=== PATIENT | female | born 1995 ===

== ENCOUNTER 2023-11-28 18:12 | Emergency (ER) | payer BC, SELFPAY ==
[2023-11-28 18:15] VITALS: BP 134/85
--- NOTE | 2023-11-28 19:56 | ED.GENMED ---
History of Present Illness
General
Chief Complaint: Problems
Source: patient and spouse
Time Seen by Provider: 11/28/23 19:50
Travel History
Have you had any contact with someone who has COVID-19?: No
Do you have any symptoms of coronavirus? Fever > 100 degrees, chills, cough, shortness of breath, sore throat, loss of taste or smell, muscle aches, or headache?: No
History of Present Illness
History of Present Illness:
This patient is a very pleasant 28-year-old female, G1, P0, who presents emergency department with complaints of vaginal bleeding. She saw her PORTFOLIO ADMINISTRATOR doctor on Friday and had an ultrasound that showed a IUP measuring 8 weeks without a heartbeat as
per patient. She was due for a D&C on Friday. Today at around 2:30 PM patient developed significant vaginal bleeding associated with clots. She noted that with this she felt slightly dizzy but this is no longer the case. She does not have any
symptoms at this time and is actually quite hungry. She denies dyspnea, chest pain, fever, chills, nausea, vomiting, diarrhea, constipation. Patient notes that she had cramping across her lower abdomen and back earlier in the day. Since arrival
in the emergency department she is use just 2 pads and feels that the bleeding has slowed significantly.
Past History
Past History
ED Past Medical History: None
ED Past Surgical History: None
Social History
Tobacco: Non-smoker
Alcohol: None
Drug: None
Personal:
Living: with family
Phy Exam
Physical Exam
Physical Exam:
GENERAL: Alert , in no apparent distress
EYE: pupils equal and reactive
NECK: Supple, no significant adenopathy.
ENT: o/p clr, mmm.
CARDIAC: Regular rate and rhythm .
LUNGS: Clear breath sounds bilaterally, no acute respiratory distress, no wheezes/rales/rhonchi
ABDOMEN: Soft, without focal tenderness, no r/g, no cvat
NEUROLOGICAL: Alert and oriented, no focal neuro deficits
SKIN: Warm and dry, skin intact.
MUSCULOSKELETAL: No edema, well perfused.
PSYCH: Normal and appropriate interaction.
Course
Orders/Labs/Results
Orders:
Orders
11/28/23 18:19
US Pelvis Only (non-obstetric) Urgent
Reason For Exam: poss miscarriage.
11/28/23 19:55
Test Result ONCE
11/28/23 20:13
Beta HCG Quantitative Stat
Comment: ADD ON
HCG, Serum Qualitative Screen Stat
11/28/23 20:49
Add On- LAB Urgent
Tests Added?: hcg quantitative
Vital Signs
Initial and Last Documented VS:
Initial Vital Signs
Temp Pulse Resp BP Pulse Ox
97.8 F 103 17 134/85 100
11/28/23 18:15 11/28/23 18:15 11/28/23 18:15 11/28/23 18:15 11/28/23 18:15
Last Documented Vital Signs
Temp Pulse Resp BP Pulse Ox
97.8 F 85 14 132/78 100
11/28/23 18:15 11/28/23 21:38 11/28/23 21:38 11/28/23 21:38 11/28/23 21:38
Information
Weeks gestation: N/A
Location: N/A
*Critical Care Note
Total Time (30-74mins, 75-104mins- exclusive of procedures): Not Applicable
Update Note
Update Note:
Patient presents to the Emergency Department with vaginal bleeding____
Number and Complexity of Problems Addressed at the Encounter
� Chronic conditions affecting care:
� Acute Exacerbation and/or Progression of Chronic Illness:
� Differential Diagnosis includes: But not limited to spontaneous AB, threatened AB, Fibroid, etc.
Amount and/or Complexity of Data to be Reviewed and Analyzed
� I performed an independent evaluation of and my interpretation is:
EKG:
CT:
Xrays:
Laboratory Studies:Beta pending on d/c
Other:US c/w no IU gest sac
� Review of other/old records reveals: There is laboratory values on previous records noted here, patient is Rh+
� Clinical information was obtained by an independent historian:
� Prescriptions/Medications Considered but not given:
� Further testing considered but not performed:
Risk of Complications and/or Morbidity or Mortality of Patient Management
� Social determinants of health affecting care:
� Discussion with other providers (PCP, Hospitalists, Consultants, etc):
� Escalation of care including admission/observation vs risk of discharge considered:case d/w Dr Vaughn, aware of hx, phys, RH, us, etc...agrees with plan to cacnel D and E for Friday, expectant precautions, pt and aware
of reasons to rted and what ot expect. Her bleeding is now minimal, no pain, no sxs.
ED Attending Note
-
Portions of this chart may have been created with voice recognition software.� Occasional wrong word or��sound alike� substitutions may have occurred due to the inherent limitations of voice recognition software.
Discharge Plan
Departure
Patient Disposition: Home (Routine Discharge)
Date of Disposition: 11/28/23
Time of Disposition: 22:21
Patient with high blood pressure during this ER visit?: Yes
Condition: Good
Discharge Problem:
Miscarriage
Instructions: Miscarriage (DC), BLOOD PRESSURE
Prescriptions:
No Action
No Current Medications
0
Referrals:
NONE,* [Family Provider] -
Activity Restrictions/Additional Instructions:
WE HAVE ALERTED YOUR [facility]FOLIO ADMINISTRATOR DOCTOR THAT YOU WERE HERE, AND YOUR SURGERY IS NO LONGER SCHEDULED FOR FRIDAY. IF, HOWEVER, YOU DEVELOP INCREASING/PERSISTENT BLEEDING, PASS CLOTS, HAVE ABDOMINAL/BACK PAIN, DIZZINESS, OR OTHER WORRISOME SIGNS, CALL YOUR
OB OR RETURN TO THE ED IMMEDIATELY!
Interventions
Interventions:
*Risk Screen - Suicide Last Done: 11/28/23 18:15
*General Assessment Last Done: 11/28/23 18:15
*Neglect/Abuse Screening Last Done: 11/28/23 18:15
*ED COVID-19 Vaccine History Last Done: 11/28/23 20:07
ED-Female Genitourinary Assessment Last Done: 11/28/23 20:17
[2023-11-28 20:07] VITALS: BMI 27.9
[2023-11-28 20:14] VITALS: BP 112/70
[2023-11-28 20:33] LABS: HCG, Serum Qualitative Screen Positive
[2023-11-28 21:38] VITALS: BP 132/78
== END 2023-11-28 22:38 | disposition home or self-care (01) ==
LOC: EMR 18:12
PROVIDERS: EMERGENCY PHYSICIAN Emergency Medicine
DX: O03.9 Complete or unspecified spontaneous abortion without complication (principal); Z3A.08 8 weeks gestation of pregnancy
CPT/HCPCS: 99284; 76856; 84702; 84703

== ENCOUNTER 2025-04-21 17:32 | Observation (INO) | payer BC, SELFPAY ==
[2025-04-21 17:59] VITALS: BP 125/84; BMI 35.0
== END 2025-04-21 18:58 | disposition home or self-care (01) ==
LOC: LDRP 17:32
PROVIDERS: ADMITTING PHYSICIAN Obstetrics & Gynecology; ATTENDING PHYSICIAN Obstetrics & Gynecology
DX: Z34.03 Encounter for supervision of normal first pregnancy, third trimester (principal); Z3A.37 37 weeks gestation of pregnancy
CPT/HCPCS: 36415; 76815; 86850; 86900; 86901; G0378

== ENCOUNTER 2025-04-22 18:54 | Inpatient (IN) | payer BC, SELFPAY ==
[2025-04-22 19:05] VITALS: BP 125/76; BMI 34.6
[2025-04-22] MEDS: LR 1000 IV (19:30)
[2025-04-22 20:38] LABS: Hematocrit 32.4 % (37.0-47.0); Hemoglobin 11.0 g/dL (12.0-16.0); Mean Corp Hgb Conc. 34.0 g/dL (33.0-37.0); Mean Corpuscular Volume 83.5 fL (81.0-99.0); Nucleated Red Blood Cells % 0 %; Platelet Count 187 10^3/uL (130-400); Red Cell Dist. Width 15.2 % (11.5-14.5)
[2025-04-23] MEDS: LR 1000 IV ×3 (01:07→13:50)
[2025-04-23] MEDS: FENTANYL/BUPIVACAINE 100 EPIDURAL ×2 (01:08→09:37)
[2025-04-23] MEDS: SUBLIMAZE 100 MCG EPIDURAL (01:08)
[2025-04-23] MEDS: PITOCIN 30 UNITS/NSS 500 ML IV (07:58)
[2025-04-23] MEDS: ZOFRAN 4 MG IV (10:49)
[2025-04-23] MEDS: COLACE 100 MG PO (21:10)
[2025-04-23] MEDS: POLYSPORIN/DOUBLE ANTIBIOTIC 1 APPLIC TOPICAL (21:11)
[2025-04-23] MEDS: MOTRIN 600 MG PO (21:25)
[2025-04-24 05:57] LABS: Hematocrit 29.1 % (37.0-47.0); Hemoglobin 9.7 g/dL (12.0-16.0)
[2025-04-24] MEDS: PRENATAL PLUS 1 TABLET PO (08:07)
[2025-04-24] MEDS: FEOSOL 325 MG PO (08:07)
[2025-04-24] MEDS: COLACE 100 MG PO ×2 (08:07→20:52)
[2025-04-24] MEDS: POLYSPORIN/DOUBLE ANTIBIOTIC 1 APPLIC TOPICAL ×2 (08:07→20:53)
[2025-04-25] MEDS: PRENATAL PLUS 1 TABLET PO (08:48)
[2025-04-25] MEDS: COLACE 100 MG PO (08:48)
[2025-04-25] MEDS: FEOSOL 325 MG PO (08:48)
[2025-04-25] MEDS: POLYSPORIN/DOUBLE ANTIBIOTIC 1 APPLIC TOPICAL (08:49)
[2025-04-26 12:56] LABS: Syphilis/T. pallidum Ab Reflex Negative (Negative)
== END 2025-04-25 12:00 | disposition home or self-care (01) | DRG 807 ==
LOC: LDRP 18:54
PROVIDERS: Obstetrics & Gynecology; ADMITTING PHYSICIAN Obstetrics & Gynecology; FAMILY PHYSICIAN Obstetrics & Gynecology
PROC: 10E0XZZ Delivery of Products of Conception, External Approach (ICD-10-PCS; 2025-04-23)
PROC: 10907ZC Drainage of Amniotic Fluid, Therapeutic from Products of Conception, Via Natural or Artificial Opening (ICD-10-PCS; 2025-04-23)
PROC: 0KQM0ZZ Repair Perineum Muscle, Open Approach (ICD-10-PCS; 2025-04-23)
DX: O70.1 Second degree perineal laceration during delivery (principal); Z37.0 Single live birth; Z3A.39 39 weeks gestation of pregnancy
CPT/HCPCS: 85014; 85018; 85025; 86780; 86850; 86900; 86901; 88304